=== PATIENT | male | born 1965 | race Caucasian/White ===

== ENCOUNTER 2016-05-29 23:01 | Inpatient (IN) ==
--- NOTE | 2016-05-29 23:27 | Emergency Department Note ---
Sony Villar Emily, am scribing for, and in the presence of, Rivera Walker MD 23: 26. Aaron Villar Robert M, MD, personally performed the services described in this documentation, ascribed by Cindi Cardoza in my presence, and it is both accurate and complete 326 . Arrival - Arrival Chief Complaint: GI Bleed/Rectal Stated Complaint: gi bleed ED Nursing Triage Note: Patient to room via ems. Patient was transfered from [facility] for GI bleed. Patient has been vominting blood and having rectal bleeding. Mode of Arrival: Stretcher Limitations: No Limitations Source: Patient - History of Present Illness HPI Narrative: Pt is a 50 y/o male who was transferred from [facility] to ED for further evaluation of GI bleed due to hemorrhoids. Pt notes having bright red blood in stool mostly but at 6pm this afternoon, he was having hematemesis with nausea and febrile in ED. PMHx of HTN. Pt denies PCP. Onset (ago): hour(s) Consistency: constant Severity: moderate Severity scale (1-10): 6 Quality: aching Allergies/Adverse Reactions: Allergies Allergy/AdvReac Type Severity Reaction Status Date / Time No Known Allergies Allergy Unverified 05/29/16 23:08 Review of System - Review of System 12 point system: reviewed and no additional remarkable complaints except as stated - Review of System Constitutional: Present: fever, weakness. Absent: chills Respiratory: Absent: respiratory distress Cardiovascular: Absent: chest pain Gastrointestinal: Present: nausea, vomiting, hematemesis. Absent: abdominal pain, melena, other (bright red blood in stool) Genitourinary male: Absent: dysuria Skin: Absent: rash Neurological: Absent: headache Medical,Surgical,& Family Hx - Medical History Cardio: History of: Hypertension Gastrointestinal: History of: Hemorrhoids - Social History Smoking Status: Former smoker Frequency of Alcohol Use: Occasionally Type of Drug Use: None Exam Vital Signs: Vital Signs Temperature 100.3 F H 05/29/16 23:01 Pulse Rate 89 05/29/16 23:01 Respiratory Rate 17 05/29/16 23:01 Blood Pressure 157/103 05/29/16 23:01 O2 Sat by Pulse Oximetry 96 05/29/16 23:01 - General General appearance: alert, in no apparent distress - Head Head exam: Present: atraumatic, normocephalic - Eye Eye exam: Present: PERRL, EOMI - ENT ENT exam: Present: mucous membranes moist. Absent: mucous membranes dry - Neck Neck exam: Present: full ROM. Absent: tenderness - Chest Chest inspection: Present: symmetric chest wall rise. Absent: tenderness - Respiratory Respiratory exam: Present: normal lung sounds bilaterally. Absent: respiratory distress - Cardiovascular Cardiovascular exam: Present: regular rate, normal rhythm, normal heart sounds - Abdominal Exam Abdominal exam: Present: soft. Absent: distention, tenderness, guarding, rebound - Back Exam Back exam: Present: full ROM. Absent: tenderness - Neurological Exam Neurological exam: Present: alert, oriented X3, CN II-XII intact. Absent: motor sensory deficit - Psychiatric Psychiatric exam: Present: normal affect, normal mood - Skin Skin exam: Present: warm, dry Course - Consultations Consultation #1: Dr. Hernandez the hospitalist will evaluate and admit the patient. Time: 23:26 Disposition Clinical Impression: Upper GI bleed Case discussed with: patient Disposition: Still a Patient Condition: Stable Time of Disposition: 23:27
--- NOTE | 2016-05-30 00:22 | Hospitalist History & Physical ---
Assessment and Plan (1) Upper GI bleed Status: Acute Assessment and plan: Upper GI bleed with a differential including gastritis, esophagitis, peptic ulcer disease, Yesenia-Peres tear Hemodynamically stable with hemoglobin 15.[address] scan shows moderate hiatal hernia, distal esophageal thickening, indeterminate scattered liver lesions, diverticulosis Continue pantoprazole infusion Serial monitoring of hemoglobin and hematocrit IV hydration Symptom control We will need GI consultation for upper endoscopy Clear liquid diet for now Current Visit: Yes (2) Post-surgical hypothyroidism Status: Chronic Assessment and plan: Continue home dose of levothyroxine, check TSH Current Visit: Yes (3) Hypertension Status: Chronic Assessment and plan: Takes lisinopril at home, will hold given acute GI bleed, restart as needed Current Visit: Yes (4) Hypomagnesemia Status: Acute Assessment and plan: Replace IV 2 g Current Visit: Yes History of Present Illness Chief complaint: Vomiting blood History of present illness: Mr. Loaiza is a 50 year old male with history of hypertension, surgical hypothyroidism, hemorrhoids that presented with a chief complaint of bloody vomit. Onset sudden. Duration 5 hours ago. Severity was one episode of about half a cup of bright red blood mixed in with his food. He no longer has nausea and has not vomited again. This is associated with intermittent cramping epigastric abdominal pain which is dull and does not radiate. Also associated with 1 week of diarrhea 4-5 times daily with bright red blood in stool. He endorsed one single episode yesterday afternoon of dizziness upon standing. Denied chest pain, palpitations, shortness of breath, near syncope. Patient has a history of hemorrhoids and has been trying [id number]-[id number] remedies at home. The last time he had a hemorrhoidal bleed was about 2 weeks ago. He had a colonoscopy 8 years ago which identified the hemorrhoids and a couple of polyps, he was given a 10 year follow-up. He has never had an upper endoscopy. He has not been taking aspirin or any other blood thinners. He has not been taking excessive amounts of NSAIDs. He does have 1-2 drinks of alcohol daily for an average of 8 or 9 drinks in a week. He was transferred to [place] from [facility] emergency department. I have reviewed the workup there including labs and imaging. In addition to morphine, antiemetics he was given a 500 cc fluid bolus, pantoprazole bolus and infusion was started of pantoprazole. His PCP is Dr. Rocha Home Medications Medication Instructions Recorded Confirmed Type Levothyroxine Tab [Synthroid Tab] 05/30/16 History Lisinopril [Lisinopril] 05/30/16 History Allergies Allergy/AdvReac Type Severity Reaction Status Date / Time No Known Allergies Allergy Unverified 05/29/16 23:08 Medical,Surgical,& Family Hx - Medical History Cardio: History of: Hypertension Endocrine: History of: Thyroid Disorder Gastrointestinal: History of: Hemorrhoids - Surgical History HEENT Surgeries: Surgical HX of: Thyroid Surgery Reproductive Surgeries: Surgical HX of;: Vasectomy Orthopedic Surgeries: Surgical HX of;: Spinal Surgery - Family History Family History: Reports;: Family Diabetes, Family Hypertension - Social History Smoking Status: Former smoker (Quit smoking in 2002, smoked for 13 years) Have you smoked in the last 12 months: No Frequency of Alcohol Use: Occasionally (Drinks 1-2 drinks nightly) Type of Drug Use: None Marital Status: Lives With:: Spouse Functional capacity: independent ambulation Review of systems: - Constitutional Constitutional: Absent: chills, fatigue, fever(s), night sweats, weight loss - EENT Eyes: Absent: blurry vision Ears: Absent: decreased hearing, ear pain Nose, mouth and throat: Absent: nasal congestion, sore throat - Cardiovascular Cardiovascular: Absent: chest pain at rest, chest pain with activity, dyspnea on exertion, edema, orthopnea, palpitations - Respiratory Respiratory: Absent: cough, dyspnea, hemoptysis - Gastrointestinal Gastrointestinal: Present: Nausea, vomiting, hematemesis, hematochezia, diarrhea , epigastric abdominal pain - Genitourinary Genitourinary: Absent: difficulty urinating, dysuria, hematuria - Musculoskeletal Musculoskeletal: Absent: arthralgias, joint swelling, myalgias - Neurological Neurological: Absent: confusion, dizziness, focal weakness, headache(s), numbness, paresthesias, syncope - Psychiatric Psychiatric: Absent: anxiety, depression - Endocrine Endocrine: Absent: cold intolerance, heat intolerance, polydipsia, polyuria - Hematologic/Lymphatic Hematologic/Lymphatic: Absent: easy bleeding, easy bruising, lymphadenopathy Exam - Constitutional Vitals: Period Temp Pulse Resp BP Sys/Salguero Pulse Ox Last 24 Hr 100.3 F-100.3 F 89-89 157-157/103-103 96 General appearance: over weight, other (Middle-aged white male appears stated age) Exam: - Eye Eye exam: Present: EOMI. Absent: conjunctival injection, scleral icterus Pupils: Present: TOMASZ - ENT ENT exam: Present: normal external ear exam, normal oropharynx - Expanded ENT Exam Mouth exam: Present: moist, fair dentition - Neck Neck exam: Present: normal inspection, thyroidectomy scar noted. Absent: lymphadenopathy, thyromegaly - Respiratory Respiratory exam: Present: clear to auscultation bilaterally. Absent: accessory muscle use, rales, rhonchi, wheezes - Cardiovascular Cardiovascular exam: Present: regular rate and rhythm. Absent: diastolic murmur , systolic murmur - Expanded Cardiovascular Exam Peripheral pulses: 2+: posterior tibialis (L), posterior tibialis (R) - GI/Abdominal GI/Abdominal exam: Present: normal bowel sounds, soft. Absent: distended, hyperactive bowel sounds, hypoactive bowel sounds, organomegaly, tenderness, rebound - Extremities Exam Extremities exam: Present: Trace bilateral ankle edema - Neurological Exam Neurological exam: Present: alert, oriented X3, CN II-XII intact. Absent: motor sensory deficit - Psychiatric Psychiatric exam: Present: normal affect - Skin Skin exam: Present: warm, dry. Absent: diaphoretic, rash
[2016-05-30] MEDS ORDERED: MAGNESIUM SULF RIDER 2 GM in PREMIX 1 EACH IV ONE (01:09)
[2016-05-30] MEDS ORDERED: PANTOPRAZOLE INJ 200 MG in SODIUM CHLORIDE 0.9% 250 ML IV SCH (01:09)
[2016-05-30] MEDS ORDERED: ZALEPLON 5 MG CAPSULE PO PRN (01:09)
[2016-05-30] MEDS ORDERED: ONDANSETRON 4 MG/2 ML VIAL IV PRN (01:09)
[2016-05-30] MEDS: DEXTROSE 5% NACL 0.45% 1,000 ML IV SCH ×3 (01:30→21:08)
[2016-05-30 06:41] LABS: Basophils # 0.1 10*3/uL (0.0-0.2); Basophils % 0.6 % (0.0-0.8); Eosinophils % 0.3 % (0.00-10.9); Hematocrit 40.2 VOL% (42.0-52.0); Hemoglobin 13.2 GM/DL (14.0-18.0); Immature Granulocytes % 0.5 %; Immature Granulocytes Absolute 0.06 #; Lymphocytes # 1.6 10*3/uL (1.4-4.0); Lymphocytes % 12.3 % (21.2-54.2); Mean Corpuscular HGB Conc 32.8 GM/DL (32-36); Mean Corpuscular Hemoglobin 30 PG (27-34); Mean Corpuscular Volume 90.1 FL (87-102); Mean Platelet Volume 10.6 FL (9.6-12.0); Neutrophils # 10.2 10*3/uL (1.4-7.4); Neutrophils % 78.3 % (38.7-73.9); Platelet Count 230 T/CUMM (130-400); Red Blood Count 4.46 MC/CUMM (3.8-5.5); Red Cell Distribution Width 12.5 % (9.3-17.3); White Blood Count 13.1 T/CUMM (4-12)
[2016-05-30 07:25] LABS: Calcium 8.2 MG/DL (8.5-10.1); Osmolality,Calculated 281.3 MOS/KG (273-304); Potassium 4.1 MMOL/L (3.5-5.1)
[2016-05-30 07:36] LABS: Magnesium 2.4 MG/DL (1.8-2.4); Thyroid Stimulating Hormone 0.579 uIU/ml (0.358-3.74)
[2016-05-30] MEDS: LEVOTHYROXINE 200 MCG TABLET PO SCH (08:15)
[2016-05-30] MEDS: HYDROCORTISONE 2.5% RECTAL CREAM 30 GM TUBE TOP SCH ×3 (08:16→21:11)
--- NOTE | 2016-05-30 08:39 | Event Note ---
Patient was admitted to my service by Dr. Hernandez last night, patient had upper GI bleed and moderate hiatal hernia with distal esophageal thickening question of liver lesions he has been consulted Constitutional: General appearance is normal Eyes: Pupils equal round react to light and accommodation conjunctiva and lids are normal Neck: supple without masses Respiratory: Respiratory effort is normal. Lungs are clear to auscultation. Resonant to percussion. Cardiac: Regular rate and rhythm without murmur rub or gallop. PMI at the midclavicular line by palpation. Carotid arteries 2+ palpation no bruits GI: Bowel sounds normoactive, no tenderness or rebound tenderness, no organomegaly Extremities: no clubbing cyanosis or edema Lab reviewed and no abnormalities will follow await GI consult
--- NOTE | 2016-05-30 10:01 | Gastrointestinal Consult Note ---
Assessment and Plan (1) Gastrointestinal hemorrhage with hematemesis Status: Acute Assessment and plan: This patient has likely developed a Yesenia-Peres tear versus erosive esophagitis as the cause for his hematemesis. Because of the CT scan finding of thickening we will rule out esophageal cancer but I strongly suspect this is not present. He is a drinker and former smoker and so squamous cell carcinoma is in the realm of possibility. He does not take much in the way of NSAIDs but is drinking approximately 8 ounces of whiskey per day. Peptic ulcer disease and toxic gastritis are in the differential as are AVMs and gastric cancer. Patient understands the risks of the procedure which include but are not limited to: Bleeding, infection, perforation, cardiac and pulmonary compromise. Current Visit: Yes (2) Dysphagia, pharyngoesophageal Status: Acute Assessment and plan: The patient has had a long-standing history of dysphagia since 2005 on and off. This may require dilation during the above procedure. We will plan on doing this as part of his upper endoscope, provided there is not excessive amounts of esophagitis making this unsafe. Further recommendations post upper endoscopy. Current Visit: Yes (3) Abnormal CT scan, esophagus Status: Acute Assessment and plan: The patient has CT scan confirmation of his reflux induced esophagitis. We will see if the endoscopic appearance correlates with this. Current Visit: Yes (4) Family history of colon cancer Status: Acute Assessment and plan: Patient's father had a history of colon cancer in his early 70s, this patient is having rectal bleeding and likely will need a colonoscopy as an outpatient because of these 2 factors. We will arrange for this upon discharge. Current Visit: Yes (5) Rectal bleeding Status: Acute Assessment and plan: Patient does have some rectal bleeding likely due to hemorrhoids. We do need to do colonoscopy due to the family history of colon cancer in his father. Current Visit: Yes History of Present Illness Chief complaint: Hematemesis, dysphagia, reflux, father with colon cancer, rectal bleeding History of present illness: Mr. 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 He has had reflux symptoms with intermittent dysphagia since 2005 and has been told that he has a hiatal hernia. He has never had upper or lower endoscopy. He was eating his regular diet yesterday when a piece of his same which got caught at approximately 6:30 PM forcing him to vomit to get this out and when he threw up there was bright red blood, he threw up a second time in the [place] [facility] before being transferred over here for hospitalization and evaluation. Food gets caught with some regularity but he usually is able to swallow water and get this down. He typically treats his reflux symptoms with Tums or Rolaids and has not tried proton pump inhibitors. He was also having some severe epigastric pain which was 10 out of 10 in intensity at one point and has since dissipated down to approximately a 2 out of 10 at this time. This was fairly new. He really does not take much in the way of NSAIDs although used to be a big Motrin and Aleve use or back when he was in the . He has not noticed any melena but has occasional bright red blood per rectum. His father had developed a history of colon cancer at age 70. He has never had colonoscopy but is only 50. Given his bright red blood per rectum he will need to have this when he is discharged at some point. His hematocrit has not dropped significantly, going from 45.5 down to 40.2 over his admission thus far. He is likely still equilibrating. He states that he has never gone to the DTs. He typically tends to be a bit more diarrheal than constipated. He did have a low-grade fever with this earlier vomiting episode but no chills. He has not lost any weight. Home Medications Medication Instructions Recorded Confirmed Type Levothyroxine Tab [Synthroid Tab] 200 mcg DAILY 05/30/16 05/30/16 History Lisinopril [Lisinopril] 10 mg DAILY 05/30/16 05/30/16 History Allergies Allergy/AdvReac Type Severity Reaction Status Date / Time No Known Allergies Allergy Unverified 05/29/16 23:08 Medical,Surgical,& Family Hx - Medical History Cardio: History of: Hypertension Endocrine: History of: Thyroid Disorder Gastrointestinal: History of: Hemorrhoids - Surgical History HEENT Surgeries: Surgical HX of: Thyroid Surgery Reproductive Surgeries: Surgical HX of;: Vasectomy Orthopedic Surgeries: Surgical HX of;: Spinal Surgery - Family History Family History: Reports;: Family Diabetes, Family Hypertension - Social History Smoking Status: Former smoker Frequency of Alcohol Use: Occasionally Type of Drug Use: None Review of systems: Constitutional: Denies fever, chills, but positive for yesterday's nausea, and vomiting/hematemesis Eyes: Denies dry eyes, and scleral icterus HENT: He does have occasional headaches Cardiovascular: Denies acute chest pain and claudication Respiratory: Denies shortness of breath, wheezing, and difficulty breathing, denies cough Gastrointestinal: As noted in the HPI Genitourinary: Denies dysuria and hematuria Neurologic: Denies vision loss, and loss of sensation Musculoskeletal: Denies joint swelling, joint stiffness, and muscular weakness Psychiatric: Denies depression and kyere symptoms Heme-Lymph: Denies easy bruising, lymph node enlargement or tenderness, night sweats, excessive bleeding Allergies-immunologic: Denies pruritus and rhinorrhea Exam - Constitutional Vitals: Period Temp Pulse Resp BP Sys/Salguero Pulse Ox Last 24 Hr 98.4 F-100.2 F 60-88 16-18 119-155/57-89 94-95 General appearance: no acute distress Exam: Constitutional: Well-developed, well-nourished, alert, and in no acute distress Head and face: Head: Normocephalic atraumatic Eyes: Conjunctiva without injection, no gross scleral icterus, pupils equal and round bilaterally Ears: Intact to conversation in both ears Nose: External appearance is normal, nares patent Mouth: Oral mucous membranes moist without erythema dentition noted to be without erosion Neck: Normal appearance, no masses or tenderness, trachea midline Thyroid: Gland midline and appropriate size for age Respiratory: Normal respiratory effort, clear to auscultation without wheezes, rhonchi or rales Cardiovascular: Regular rate and rhythm, normal S1, S2, the exam is without rubs, murmurs or gallops. Gastrointestinal: Mild epigastric greater than left upper quadrant tenderness to palpation, normal active bowel sounds, tone normal without rigidity or guarding, no masses present, no hepatomegaly, no spleen tip felt. Rectal exam shows trace guaiac positivity stools present brown and guaiac negative good tone and small hemorrhoids noted. Lymphatic: Neck without adenopathy, axilla without lymphadenopathy present Musculoskeletal: Right and left lower extremities without evidence of edema Skin and subcutaneous tissue: No rashes or ulcerations noted, normal skin turgor, digits and nails without clubbing/cyanosis/deformities. Neurologic: The patient is grossly oriented to person place and time, cranial nerves show tongue movements are normal with normal tongue extrusion midline, light touch sensation is intact. Psychiatric: No hallucinations or delusions are present, does not appear depressed Results - Labs CBC & BMP: 05/30/16 05:37 05/30/16 05:37 Quality Measures - VTE Contraindication to Pharmacological VTE Prophylaxis: Active Bleeding
[2016-05-30 17:08] LABS: Hematocrit 38.6 VOL% (42.0-52.0)
[2016-05-30] MEDS ORDERED: PANTOPRAZOLE 40 MG VIAL IV SCH (21:00)
[2016-05-31 00:45] LABS: Hematocrit 38.5 VOL% (42.0-52.0); Hemoglobin 12.9 GM/DL (14.0-18.0)
[2016-05-31] MEDS: DEXTROSE 5% NACL 0.45% 1,000 ML IV SCH ×2 (05:13→13:03)
[2016-05-31] MEDS ORDERED: PROPOFOL 200 MG/20 ML VIAL IV ONE (08:27)
[2016-05-31] MEDS ORDERED: LIDOCAINE 1% 5 ML VIAL ONE (08:27)
--- NOTE | 2016-05-31 08:35 | Anesthesia ---
Anesthesia Post OP - Post Ansesthetic Evaluation Patient seen in post op: Yes Resp: within normal limits CV: within normal limits Mental: within normal limits Temp: within normal limits [id number]: within normal limits Nausea and Vomiting: within normal limits Pain: within normal limits
--- NOTE | 2016-05-31 08:35 | Operative Note ---
Date of procedure: 05/31/16 Pre-op diagnosis: Hematemesis with decreased hematocrit from 40-38%, EtOH Post-op diagnosis: other (This is a patient with distal esophageal thickening on CT scan, erosive esophagitis, dysphagia with a tight Schatzki's ring noted at the GE junction, dilated to 57 [place] by single pass Savary dilator, moderate sized hiatal hernia, linear gastritis, erosive duodenitis likely due to the alcohol intake) Procedure: PROCEDURE: Esophagogastroduodenoscopy (EGD) with cold biopsy for pathology and Savary dilation to 57 [place]. REFERRING PHYSICIAN: Yani Interiano MD INDICATIONS: This is a patient with hematemesis yesterday, significant EtOH intake, dysphagia, thickening seen in the distal esophagus on CT scan rule out cancer, this patient also has a history of rectal bleeding and a father with a history of colon cancer will need colonoscopy as an outpatient. The prior H&P was reviewed and interrim changes are as noted: No change from GI consultation yesterday ENDOSCOPIST: Bhaskar Leslie MD ENDOSCOPE: Olympus Video 100 System upper endoscope ASA CLASS: 2 EXAM: CV: regular rate and rhythm respiratory: Clear without wheezes abdominal: active bowel sounds MEDICATION: Per nursing anesthesia protocol, see their notes PROCEDURE: After discussion of the potential risks and benefits of upper endoscopy, the informed consent was obtained. The patient was then placed in the left lateral decubitus position where sedation was achieved as noted above. Esophageal intubation was performed without difficulty, and the endoscope was advanced through the esophagus, stomach and duodenum. A slow withdrawal was then performed with retroflexion in the stomach for careful inspection of the incisura angularis, fundus and cardia. The scope was then returned to a neutral position and withdrawn through the esophagus. The patient tolerated the procedure well and without complication. BIOPSIES: Distal esophagus and gastric antrum/body PHOTOGRAPHS: obtained FINDINGS: Hypopharynx and Larynx: Normal Esohagoscopy Upper and middle thirds: Normal Lower third tortuous with LA class B erosive esophagitis of the distal esophagus 2 cm Esophogastric junctions: Peridiaphragmatic diverticulum noted and a stricture noted at the GE junction, dilated to 19 mm by Savary dilator with a slight snap palpated but no heme noted on the dilator. Mild force needed. Gastroscopy: Cardia/Fundus: 5 cm hiatal hernia noted between 40 and 45 cm Body: Mild diffuse gastritis noted, biopsied, wire advanced into the stomach to facilitate Savary dilation above Antrum and pylorus mild linear gastritis noted, biopsied, wire advanced into the stomach to facilitate Savary dilation above Duodenoscopy: Bulb erosive duodenitis of a moderate nature noted Second and third portions: Normal IMPRESSION: This is a patient with distal esophageal thickening on CT scan, erosive esophagitis, dysphagia with a tight Schatzki's ring noted at the GE junction, dilated to 57 [place] by single pass Savary dilator, moderate sized hiatal hernia, linear gastritis, erosive duodenitis likely due to the alcohol intake RECOMMENDATIONS: Follow up for biopsy results in 1-2 weeks by phone [phone] Continue anti-gastroesophageal reflux measures (avoid carbonated and acidic beverages, avoid eating within 2 hours of bedtime, avoid tight fitting clothing , and elevate the front bed posts 6 inches prior to sleeping. Keep alcohol intake down to 2 ounces per day of whiskey Protonix 40 mg twice daily for the first 1 month and then once a day prior to suppertime for best effect. Observe swallowing with redilation if required in the next 6-18 months, contact my office. Follow-up in 6 weeks to see how the patient is doing and to schedule colonoscopy Bhaskar Leslie MD COPY TO: Yani Interiano MD Anesthesia: MAC Surgeon / Physician: Bhaskar Leslie Estimated blood loss: minimal Specimens: other (Distal esophagus, gastric antrum/body) Condition: stable Disposition: post procedure unit ([facility]) Results - Labs CBC & BMP: 05/31/16 00:35 05/30/16 05:37 Discharge Plan - Discharge Medications No Action Levothyroxine Tab [Synthroid Tab] 200 mcg DAILY Lisinopril [Lisinopril] 10 mg DAILY - Follow Up or Referral - Forms/Instructions
[2016-05-31] MEDS: LEVOTHYROXINE 200 MCG TABLET PO SCH (08:36)
--- NOTE | 2016-05-31 08:40 | Gastrointestinal Progress Note ---
Assessment and Plan (1) Gastrointestinal hemorrhage with hematemesis Status: Acute Assessment and plan: This patient has likely developed a Yesenia-Peres tear versus erosive esophagitis as the cause for his hematemesis. Because of the CT scan finding of thickening we will rule out esophageal cancer but I strongly suspect this is not present. He is a drinker and former smoker and so squamous cell carcinoma is in the realm of possibility. He does not take much in the way of NSAIDs but is drinking approximately 8 ounces of whiskey per day. Peptic ulcer disease and toxic gastritis are in the differential as are AVMs and gastric cancer. Patient understands the risks of the procedure which include but are not limited to: Bleeding, infection, perforation, cardiac and pulmonary compromise. 05/31/16--the patient is having some dysphasia and we were able to dilate him to 57 Salv[place]orean by single pass Savary dilator. He did end up having a fairly tight stricture at the EG junction and some LA class B erosive esophagitis above this. This is likely the source of his hematemesis although he did have erosive duodenitis as well. There was only mild linear gastritis noted in the stomach prep secondary to his alcohol intake. This patient did have a sizable 5 cm hiatal hernia as well. He appeared to be free of any bleeding prior to my dilation. He is certainly welcome to leave the hospital today with a prescription written for pantoprazole 40 mg twice daily for 1 month and then switching this to just once daily prior to supper. Current Visit: Yes (2) Dysphagia, pharyngoesophageal Status: Acute Assessment and plan: The patient has had a long-standing history of dysphagia since 2005 on and off. This may require dilation during the above procedure. We will plan on doing this as part of his upper endoscope, provided there is not excessive amounts of esophagitis making this unsafe. Further recommendations post upper endoscopy. 05/31/16--this patient had a 10 mm opening to his esophagus that was dilated to 19 mm with good effect. Hopefully he will be able to swallow more easily now but his acid will come splashing up more easily hence the need for the pantoprazole twice daily for the next 1 month. He can be redilated in the next 6-18 months if he finds this helpful and symptoms recur. Current Visit: Yes (3) Abnormal CT scan, esophagus Status: Acute Assessment and plan: The patient has CT scan confirmation of his reflux induced esophagitis. We will see if the endoscopic appearance correlates with this. 05/31/16--this correlates to the LA class B erosive esophagitis noted above and stricturing. Current Visit: Yes (4) Family history of colon cancer Status: Acute Assessment and plan: Patient's father had a history of colon cancer in his early 70s, this patient is having rectal bleeding and likely will need a colonoscopy as an outpatient because of these 2 factors. We will arrange for this upon discharge. 05/31/16--the patient has a history of rectal bleeding and a father with a history of colon cancer and will need to get set up for colonoscopy as an outpatient. I will do this when I see him back in 6 weeks in the office. Current Visit: Yes (5) Rectal bleeding Status: Acute Assessment and plan: Patient does have some rectal bleeding likely due to hemorrhoids. We do need to do colonoscopy due to the family history of colon cancer in his father. 05/31/16--see above Current Visit: Yes Gastroenterology - PN: Subj Interval history: No new complaints, no further hematemesis Exam (Progress Note) - Constitutional Vitals: Period Temp Pulse Resp BP Sys/Salguero Pulse Ox Last 24 Hr 97.8 F-98.7 F 49-81 16-20 118-159/67-96 95-97 General appearance: no acute distress - Eye Eye exam: Present: EOMI - Respiratory Respiratory exam: Present: clear to auscultation bilaterally. Absent: rhonchi, stridor, wheezes - Cardiovascular Cardiovascular exam: Present: regular rate and rhythm - GI/Abdominal GI/Abdominal exam: Present: normal bowel sounds, tenderness (Epigastric region) , soft. Absent: distended, guarding, rebound - Psychiatric Psychiatric exam: Present: normal affect, normal mood - Skin Skin exam: Present: warm Results - Labs CBC & BMP: 05/31/16 00:35 05/30/16 05:37
[2016-05-31 09:05] LABS: Hematocrit 39.3 VOL% (42.0-52.0); Hemoglobin 12.9 GM/DL (14.0-18.0)
[2016-05-31] MEDS: HYDROCORTISONE 2.5% RECTAL CREAM 30 GM TUBE TOP SCH (09:38)
[2016-05-31] MEDS ORDERED: HYDROCORTISONE 2.5% RECTAL CREAM 30 GM TUBE TOP PRN (09:46)
--- NOTE | 2016-05-31 17:08 | Hospitalist Progress Note ---
Assessment and Plan (1) Upper GI bleed Status: Acute Assessment and plan: EGD showed extensive duodenitis, gastritis, erosive esophagitis Current Visit: Yes (2) Hypertension Status: Chronic Assessment and plan: Hep-Lock IV fluids and restart lisinopril Current Visit: Yes Hospitalist: Subjective Interval history: EGD showed extensive erosive esophagitis gastritis and duodenitis. patient should be stable to go home in am Exam - Constitutional Vitals: Period Temp Pulse Resp BP Sys/Salguero Pulse Ox Last 24 Hr 97.8 F-98.6 F 49-81 16-20 118-159/66-102 95-97 Exam: Heart Rate-[RRR] Lungs-[CTAB] GI-[+bs soft, NT] Ext-[no edema] Neuro [Motor 5/5], [alert and oriented times 3] psych [normal mood and affect] General [no acute distress] Results - Labs CBC & BMP: 05/31/16 08:56 05/30/16 05:37 Lab Results: I have reviewed the past 24 hour labs Quality Measures - VTE Contraindication to Pharmacological VTE Prophylaxis: Active Bleeding Specialty Discharge - Follow Up or Referrals Follow up with: Bhaskar Leslie MD [Physician] - (6 week follow up AND schedule a c scope)
[2016-05-31 17:10] LABS: Hematocrit 45.4 VOL% (42.0-52.0); Hemoglobin 15.2 GM/DL (14.0-18.0)
[2016-05-31] MEDS ORDERED: PANTOPRAZOLE 40 MG TABLET PO ONE (17:18)
[2016-05-31] MEDS: PANTOPRAZOLE 40 MG TABLET PO SCH (18:02)
[2016-05-31] MEDS: LISINOPRIL 10 MG TABLET PO SCH (18:02)
[2016-06-01 05:40] LABS: Basophils # 0.1 10*3/uL (0.0-0.2); Eosinophils # 0.7 10*3/uL (0.0-0.87); Eosinophils % 8.6 % (0.00-10.9); Hematocrit 41.5 VOL% (42.0-52.0); Immature Granulocytes % 0.2 %; Immature Granulocytes Absolute 0.02 #; Lymphocytes # 1.7 10*3/uL (1.4-4.0); Lymphocytes % 19.9 % (21.2-54.2); Mean Corpuscular HGB Conc 33.7 GM/DL (32-36); Mean Corpuscular Hemoglobin 30 PG (27-34); Mean Corpuscular Volume 87.7 FL (87-102); Mean Platelet Volume 10.4 FL (9.6-12.0); Monocytes # 0.9 10*3/uL (0.11-0.8); Monocytes % 10.6 % (1.7-12.7); Neutrophils % 59.7 % (38.7-73.9); Platelet Count 236 T/CUMM (130-400); Red Blood Count 4.73 MC/CUMM (3.8-5.5); Red Cell Distribution Width 12.2 % (9.3-17.3); White Blood Count 8.4 T/CUMM (4-12)
[2016-06-01] MEDS: PANTOPRAZOLE 40 MG TABLET PO SCH (06:09)
[2016-06-01] MEDS: LEVOTHYROXINE 200 MCG TABLET PO SCH (06:09)
[2016-06-01 08:26] VITALS: BP 131/68
[2016-06-01] MEDS: LISINOPRIL 10 MG TABLET PO SCH (09:35)
--- NOTE | 2016-06-01 09:46 | Discharge Summary ---
<Melvin Barrera - Last Filed: 06/01/16 09:36> Hospital Course - Hospital Course Hospital Course: Patient was admitted on 05/30/2016 with a chief complaint of bloody vomit. He was admitted for further evaluation and treatment. GI was consulted, and Dr. Leslie performed an EGD with cold biopsy. He was found to have distal esophageal thickening on CT, erosive esophagitis, dysphagia with tight Schatzki' s ring at the GE junction, moderate size hiatal hernia, linear gastritis, erosive duodenitis likely due to alcohol intake. At the time of the EGD, the patient also had esophageal dilation. Dr. Leslie recommended he continue PPIs and reduce alcohol intake to 2 ounces per day with an outpatient GI follow-up in 6 weeks. At this time he is reached maximum benefit from hospitalization and is ready for discharge. Patient will be instructed to follow-up with Dr. Leslie in 6 weeks to schedule a colonoscopy. - Time spent with patient Time with patient DS: Greater than 30 minutes Specialty Discharge - Follow Up or Referrals Follow up with: Bhaskar Leslie MD [Physician] - (6 week follow up AND schedule a c scope) Discharge Plan - Discharge Data Disposition: Disch To Home/Self Care - Discharge Medications New Hydrocortisone 2.5% Rectal Cr [Anusol HC Cream] 1 applic TOP TID PRN #1 gram PRN Reason: Hemorrhoids Pantoprazole Tab [Protonix Tab] 40 mg PO BID@0700,1900 #60 tablet Changed Levothyroxine Tab [Synthroid Tab] 200 mcg PO DAILY #0 Lisinopril 10 mg PO DAILY #0 - Follow Up or Referral Follow Up: Bhaskar Leslie MD [Physician] - (6 week follow up AND schedule a c scope) Dr Kaylin [Other] - 2 Weeks - Forms/Instructions Instructions: Pantoprazole (By mouth), Gastrointestinal Bleeding (DC) Exam - Constitutional Vitals: Period Temp Pulse Resp BP Sys/Salguero Pulse Ox Last 24 Hr 97.8 F-99.6 F 57-68 16-67 122-143/66-85 92-98 Discharge Results Labs on day of discharge: Labs from last 24 hours 06/01/16 05/31/16 05:04 15:21 WBC 8.4 D RBC 4.73 Hgb 14.0 15.2 D Hct 41.5 L 45.4 MCV 87.7 MCH 30 MCHC 33.7 RDW 12.2 Plt Count 236 MPV 10.4 Neut % (Auto) 59.7 Lymph % (Auto) 19.9 L [place] % (Auto) 10.6 Eos % (Auto) 8.6 Baso % (Auto) 1.0 H Neut # (Auto) 5.0 Lymph # (Auto) 1.7 [place] # (Auto) 0.9 H Eos # (Auto) 0.7 Baso # (Auto) 0.1 Immature Gran % 0.2 Nucleated RBC % 0.0 Immature Gran # 0.02 Nucleated RBCs # 0.00 DS: Provider Date of admission: 05/30/16 00:07 Primary care physician: Hector Rocha DO Attending physician on admission: Rell Parrish MD Consults: 05/30/16 02:38 Consult to Physician [CONS] Routine Comment: consult upper gi bleed Consulting Provider: Bhaskar Leslie Consult to Specialist Group: Gastroenterology Consult Notification Comment: Dr Leslie is aware of consult, he saw this weekend. 05/31/16 06:00 Consult to Anesthesiology [CONS] Routine Consulting Provider: Reason for Anesthesiology: Pre-op Clearance Discharging clinician: Melvin TOBAR Expected date of discharge: 06/01/16 <Yani Interiano - Last Filed: 06/01/16 10:16> Hospital Course - Hospital Course Hospital Course: Patient seen and examined. Agree with findings and hospital course above - Time spent with patient Time with patient DS: Less than 30 minutes (25 min) Diagnosis - Discharge Diagnosis (1) Upper GI bleed Status: Acute (2) Hypertension Status: Chronic Discharge Plan - Discharge Data Condition at Discharge: Stable Discharge Diet: other (soft diet) Activity: resume usual activities as tolerated Hygiene: no restrictions Weight Bearing at Discharge: full weight bearing Exam - Constitutional General appearance: normal weight, no acute distress - Respiratory Respiratory exam: Present: clear to auscultation bilaterally. Absent: rhonchi, wheezes - Cardiovascular Cardiovascular exam: Present: regular rate and rhythm. Absent: systolic murmur - GI/Abdominal GI/Abdominal exam: Present: normal bowel sounds, soft. Absent: tenderness
--- NOTE | 2016-06-01 12:19 | Pathology Report from [facility] ---
ACCESSION # : [id number] PATIENT NAME : Mere Loaiza ORDERING DR : Bhaskar Leslie MD CLINICAL HX: Hematemesis w/decreased hematocrit, ETOH POST-OP DX: Same SPECIMEN INFO: #1 KASSI #2 Distal esophagus GROSS DESCRIPTION: Received in formalin in two parts labeled:#1 "MERE LOAIZA & #1" is a 0.8 x 0.4 cm aggregate of corley tissue submitted in cassette # 1.#2 "MERE LOAIZA & #2" is a 0.8 x 0.2 cm aggregate of corley tissue submitted in cassette #2. DIAGNOSIS FOR MERE LOAIZA: #1 GASTRIC ANTRAL BIOPSY: Chronic superficial gastritis. No evidence of malignancy. Special stain for H.pylori like organisms is negative.#2 DISTAL ESOPHAGEAL BIOPSY: Eosinophilic esophagitis with focal ulceration. No evidence of malignancy. SERVICE DATE: 05/31/2016 REPORT DATE: 06/01/2016 PATHOLOGIST: Cari Chambers III, M.D. [facility]
--- NOTE | 2016-06-02 15:15 | Pathology Report from [facility] ---
ACCESSION # : [id number] PATIENT NAME : Mere Loaiza ORDERING DR : Bhaskar Leslie MD CLINICAL HX: Hematemesis w/decreased hematocrit, ETOH POST-OP DX: Same SPECIMEN INFO: #1 KASSI #2 Distal esophagus GROSS DESCRIPTION: Received in formalin in two parts labeled:#1 "MERE LOAIZA & #1" is a 0.8 x 0.4 cm aggregate of corley tissue submitted in cassette # 1.#2 "MERE LOAIZA & #2" is a 0.8 x 0.2 cm aggregate of corley tissue submitted in cassette #2. DIAGNOSIS FOR MERE LOAIZA: #1 GASTRIC ANTRAL BIOPSY: Chronic superficial gastritis. No evidence of malignancy. Special stain for H.pylori like organisms is negative.#2 DISTAL ESOPHAGEAL BIOPSY: Eosinophilic esophagitis with focal ulceration. No evidence of malignancy. SERVICE DATE: 05/31/2016 REPORT DATE: 06/01/2016 PATHOLOGIST: Cari Chambers III, M.D. MTDD
== END 2016-06-01 11:00 | disposition home or self-care (01) | DRG 382 ==
LOC: EDUNIT# → N.ED 23:01 → N.EDINP 05-30 00:07 → SUATTDRO 05-30 00:07 → N.5E 05-30 00:30
PROVIDERS: ADMIT Internal Medicine Pulmonary Disease; ATTEND Internal Medicine